=== PATIENT | female | born 1945 | race Caucasian/White ===

== ENCOUNTER 2017-02-26 12:23 | Emergency (ER) | payer MEDICARE, OTHER ==
[~2017-02-26] VITALS: Ht 162.6 cm; Wt 96.2 kg
[~2017-02-26 12:23] MED LIST: ASPI-1100 PO; GLIP5TAB13 PO; LOSA1TAB39 PO; METF500T4 PO
--- NOTE | 2017-02-26 13:01 | NUR ---
PT REC'D TO ER C/O NECK PAIN WANTS RX AWAITING EVALUATION BY ER PROVIDER.
--- NOTE | 2017-02-26 13:03 | NUR ---
PT REFUSES CT OR XRAY WANTS TO LEAVE PT. VERBALIZED UNDERSTANDING OF AFTERCARE INSTRUCTIONS.Patient discharged to home in stable condition. Written and verbal after care instructions given. Patient verbalizes understanding of instruction.
[2017-02-26 13:05] VITALS: BP 138/76
== END 2017-02-26 13:05 | disposition home or self-care (01) ==
LOC: ER 12:24
DX: S16.1XXA Strain of muscle, fascia and tendon at neck level, initial encounter (principal); I10 Essential (primary) hypertension; E11.9 Type 2 diabetes mellitus without complications; F17.200 Nicotine dependence, unspecified, uncomplicated; X58.XXXA Exposure to other specified factors, initial encounter; Y93.89 Activity, other specified; Y92.89 Other specified places as the place of occurrence of the external cause; Y99.8 Other external cause status
CPT/HCPCS: 99283; A4606; Z7610

== ENCOUNTER 2018-05-09 08:21 | Emergency (ER) | payer MEDICARE ==
[~2018-05-09] VITALS: Ht 165.1 cm; Wt 81.6 kg
[~2018-05-09 08:21] MED LIST changes: -METF500T4 PO; +METF500T6 PO
--- NOTE | 2018-05-09 08:39 | NUR ---
C/O LEFT HAND SWELLING, WITH OPEN BLISTER, ITCHING S/P BEE STING ON TUESDAY. NAD. NO CP/SOB. VSS WILL CONT TO MONITOR
--- NOTE | 2018-05-09 09:12 | NUR ---
Patient discharged to home in stable condition. Written and verbal after care instructions given. Patient verbalizes understanding of instruction.
[2018-05-09 09:13] VITALS: BP 118/85
== END 2018-05-09 09:25 | disposition home or self-care (01) ==
LOC: ER 08:22
DX: T63.441A Toxic effect of venom of bees, accidental (unintentional), initial encounter (principal); Y92.89 Other specified places as the place of occurrence of the external cause; E11.9 Type 2 diabetes mellitus without complications; I10 Essential (primary) hypertension; L08.89 Other specified local infections of the skin and subcutaneous tissue; F17.200 Nicotine dependence, unspecified, uncomplicated; Z79.82 Long term (current) use of aspirin
CPT/HCPCS: A4606; Z7610

== ENCOUNTER 2021-07-26 15:37 | Emergency (ER) | payer MEDICARE ==
[~2021-07-26] VITALS: Ht 165.1 cm; Wt 93.0 kg
[~2021-07-26 15:37] MED LIST changes: +METF-440 PO; -METF500T6 PO
[2021-07-26 15:54] VITALS: BP 147/70
--- NOTE | 2021-07-26 16:02 | NUR ---
The patient bibs with c/o rashes on hands x1wk. Denies itching or pain. Respiration regular and unlabored. Will continue to monitor the patient.
--- NOTE | 2021-07-26 16:04 | NUR ---
SEEN AND EXAMINED BY SILVINA CONTRERAS
--- NOTE | 2021-07-26 16:58 | NUR ---
PHLEBATOMIST AT THE BEDSIDE
[2021-07-26 17:11] LABS: BASOPHILS # (AUTO) 0.1 K/uL (0.0-0.2); BASOPHILS % (AUTO) 0.8 % (0.0-2.0); EOSINOPHILS % (AUTO) 2.1 % (0.0-6.0); HEMATOCRIT 39 % (33-45); HEMOGLOBIN 12.7 g/dL (11.5-14.8); LYMPHOCYTES % (AUTO) 30.9 % (20.0-44.0); MEAN CORPUSCULAR HGB CONC 33 g/dl (31.0-36.0); MEAN CORPUSCULAR VOLUME 90 fL (82-100); MONOCYTES # (AUTO) 0.7 K/uL (0.1-1.30); MONOCYTES % (AUTO) 5.2 % (2.0-12.0); NEUTROPHILS # (AUTO) 7.9 K/uL (1.8-8.9); PLATELET COUNT (AUTO) 345 K/uL (150-450); RED BLOOD CELL COUNT(AUTO) 4.35 MIL/uL (4.0-5.2)
[2021-07-26 18:16] LABS: CREATININE 0.9 mg/dL (0.6-1.3); POTASSIUM 3.7 mmol/L (3.5-5.1)
[2021-07-26 18:22] LABS: ALBUMIN 3.5 g/dL (3.4-5.0); BILIRUBIN,TOTAL 0.3 mg/dL (0.2-1.0); TOTAL PROTEIN, SERUM 7.3 g/dL (6.4-8.2)
--- NOTE | 2021-07-26 18:57 | NUR ---
CALLED LAB TO FOLLOW UP RESULT. PER CLS 8 MORE MINS. MD AND PT AWARE.
--- NOTE | 2021-07-26 19:13 | NUR ---
Patient discharged to home in stable condition. Written and verbal after care instructions given. Patient verbalizes understanding of instruction.
== END 2021-07-26 19:14 | disposition home or self-care (01) ==
LOC: ER 15:40
DX: R21 Rash and other nonspecific skin eruption (principal); R70.0 Elevated erythrocyte sedimentation rate; I10 Essential (primary) hypertension; E11.9 Type 2 diabetes mellitus without complications; F17.200 Nicotine dependence, unspecified, uncomplicated; Z79.82 Long term (current) use of aspirin; Z79.84 Long term (current) use of oral hypoglycemic drugs; Z79.899 Other long term (current) drug therapy
CPT/HCPCS: 36415; 80053-TC; 85025-TC; 85652-TC; 86592

== ENCOUNTER 2023-02-15 09:26 | Emergency (ER) | payer MEDICARE, OTHER ==
[~2023-02-15] VITALS: Ht 167.6 cm; Wt 92.1 kg
--- NOTE | 2023-02-15 09:34 | NUR ---
"Fell last week hurt my left shoulder/arm"
--- NOTE | 2023-02-15 09:45 | NUR ---
Hui Alfredo utilized as a [employer]. Made aware of plan of care
--- NOTE | 2023-02-15 10:06 | NUR ---
pt to radiology for head ct scan via [facility]
--- NOTE | 2023-02-15 10:16 | NUR ---
laborer shaft sinking at bedside for blood draw
--- NOTE | 2023-02-15 10:28 | NUR ---
urine specimen collected. brought to stat lab.
[2023-02-15 10:36] LABS: BASOPHILS # (AUTO) 0.1 K/uL (0.0-0.2); BASOPHILS % (AUTO) 0.5 % (0.0-2.0); EOSINOPHILS % (AUTO) 3.1 % (0.0-6.0); HEMATOCRIT 36 % (33-45); HEMOGLOBIN 11.9 g/dL (11.5-14.8); LYMPHOCYTES # (AUTO) 2.4 K/uL (0.8-4.8); LYMPHOCYTES % (AUTO) 22.4 % (20.0-44.0); MEAN CORPUSCULAR HGB CONC 33 g/dl (31.0-36.0); MEAN CORPUSCULAR VOLUME 86 fL (82-100); MONOCYTES # (AUTO) 0.7 K/uL (0.1-1.30); MONOCYTES % (AUTO) 6.3 % (2.0-12.0); NEUTROPHILS # (AUTO) 7.2 K/uL (1.8-8.9); NEUTROPHILS % (AUTO) 67.7 % (43.0-81.0); PLATELET COUNT (AUTO) 351 K/uL (150-450); RED BLOOD CELL COUNT(AUTO) 4.21 MIL/uL (4.0-5.2); WHITE BLOOD COUNT (AUTO) 10.6 K/uL (4.3-11.0)
[2023-02-15 10:37] LABS: CALCIUM, SERUM 9.1 mg/dL (8.5-10.1); CARBON DIOXIDE 29 mmol/L (21-32); CHLORIDE 103 mmol/L (98-107); CREATININE 1.4 mg/dL (0.6-1.3); GLUCOSE 218 mg/dL (74-106); POTASSIUM 3.2 mmol/L (3.5-5.1); SODIUM SERUM 140 mmol/L (136-145); UREA NITROGEN, BLOOD 42 mg/dL (7-18)
--- NOTE | 2023-02-15 10:43 | NUR ---
dr bullock at bedside for eval.
[2023-02-15 10:54] LABS: BILIRUBIN,URINE NEGATIVE (NEGATIVE); COLOR,URINE YELLOW (YELLOW); PH,URINE 5.5 (5.0-8.0); PROTEIN,URINE NEGATIVE (NEGATIVE); UGLUCOSE NEGATIVE (NEGATIVE)
[2023-02-15 10:55] LABS: LEUKOCYTE ESTERASE ,URINE NEGATIVE (NEGATIVE); NITRITE, URINE NEGATIVE (NEGATIVE); UROBILINOGEN,URINE 0.2 EU/dL (0.2)
[2023-02-15] MEDS ORDERED: POTASSIUM CHLORIDE 20 MEQ TAB.PRT.SR PO ONE ×2 (11:00→11:10)
[2023-02-15] MEDS ORDERED: IV NS 0.9% 1,000 ML IV ONE (11:00)
--- NOTE | 2023-02-15 11:20 | NUR ---
IV ESTABLISHED R HAND 22G, SALINE LOCK IN PLACE
[2023-02-15] MEDS ORDERED: TYL2T PO (12:31)
--- NOTE | 2023-02-15 12:33 | NUR ---
Re-evaluated and updated by ED provider- Patient discharged to home in stable condition. Written and verbal after care instructions given. Patient verbalizes understanding of instruction.
[2023-02-15 12:34] VITALS: BP 135/55
--- NOTE | 2023-02-15 12:41 | NUR ---
Patient discharged to home in stable condition. Written and verbal after care instructions given. Patient verbalizes understanding of instruction.IV removed. Catheter intact and site benign. Pressure and 4x4 applied to site. No bleeding noted.
== END 2023-02-15 12:41 | disposition home or self-care (01) ==
LOC: ER 09:29
DX: S42.212A Unspecified displaced fracture of surgical neck of left humerus, initial encounter for closed fracture (principal); S09.8XXA Other specified injuries of head, initial encounter; I10 Essential (primary) hypertension; E11.9 Type 2 diabetes mellitus without complications; F17.200 Nicotine dependence, unspecified, uncomplicated; Z79.899 Other long term (current) drug therapy; Z79.84 Long term (current) use of oral hypoglycemic drugs; Z79.82 Long term (current) use of aspirin; W07.XXXA Fall from chair, initial encounter; Y93.89 Activity, other specified; Y92.89 Other specified places as the place of occurrence of the external cause; Y99.8 Other external cause status
CPT/HCPCS: 99284; 96360; 70450; 73080; 73060; 73030; 85025; 80048; 81003; 36415; J7030